=== PATIENT | female | born 2000 | race African-American/Black ===

== ENCOUNTER 2020-03-16 22:59 | Emergency (ER) | payer MEDICAID ==
[~2020-03-16] VITALS: Ht 165.1 cm; Wt 52.0 kg
[2020-03-16] MEDS ORDERED: IBUPROFEN 600MG TABLET PO ONE (23:45)
[2020-03-17 00:11] VITALS: BP 115/80
== END 2020-03-17 00:47 | disposition home or self-care (01) ==
LOC: ER 22:59
DX: S60.512A Abrasion of left hand, initial encounter (principal); S60.511A Abrasion of right hand, initial encounter; S00.81XA Abrasion of other part of head, initial encounter; V40.5XXA Car driver injured in collision with pedestrian or animal in traffic accident, initial encounter; Y93.89 Activity, other specified; Y92.488 Other paved roadways as the place of occurrence of the external cause; R00.0 Tachycardia, unspecified
CPT/HCPCS: 99282; Z7610